=== PATIENT | male | born 2000 | race Caucasian/White ===

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

== ENCOUNTER → 2025-07-21 00:53 | Outpatient (CLI) | payer OTHER, SELFPAY ==
--- NOTE | 2025-07-21 14:59 | DI.RAD_ITS ---
Exam(s) XR SHOULDER RT COMPLETE 2+V EXAM: XR SHOULDER RT COMPLETE 2+V CLINICAL HISTORY: right shoulder pain,[id number]. TECHNIQUE: 2D digital imaging was performed. COMPARISON: No exams were available for comparison FINDINGS: Four views No evidence of fracture or dislocation nor abnormal soft tissue calcifications. Subacromial space appears unremarkable. There are no degenerative changes in the glenohumeral and AC joints. The clavicle appears unremarkable as does the coracoid process. Bone density normal. No osseous lesions. IMPRESSION: No significant radiograph findings in these four views of the right shoulder. DATA REPOSITORY: RADIATION DOSE DELIVERED:
== END ==
LOC: DI 00:53
PROVIDERS: PCP Nurse Practitioner Family; Visit Provider Nurse Practitioner Family
DX: M25.511 Pain in right shoulder (principal)
CPT/HCPCS: 73030